=== PATIENT | female | born 1990 | race Caucasian/White ===

== ENCOUNTER 2017-10-24 01:18 | Emergency (ER) | payer MEDICAID ==
[~2017-10-24] VITALS: Ht 165.1 cm; Wt 72.9 kg
[~2017-10-24 01:18] MED LIST: FERR325T18 PO; IBUP200T49 PO; NITR100C56 PO; OXYC-302 PO; PREN1TAB27 PO
[2017-10-24] MEDS ORDERED: LIDOCAINE-MPF 2% ,5ML ONE (01:38)
[2017-10-24] MEDS ORDERED: LIDOCAINE-MPF 2% ,5ML INFIL ONE (02:00)
[2017-10-24 03:08] VITALS: BP 116/76
== END 2017-10-24 03:10 | disposition home or self-care (01) ==
LOC: ED 03:00
DX: L60.0 Ingrowing nail (principal); J45.909 Unspecified asthma, uncomplicated
CPT/HCPCS: 64450; 99284